=== PATIENT | female | born 1970 | race Caucasian/White ===

== ENCOUNTER 2016-06-16 03:43 | Emergency (ER) | payer SELFPAY ==
[2016-06-16] MEDS ORDERED: DILAUDID 1 MG/ML AMP ONE (04:36)
[2016-06-16] MEDS ORDERED: KETOROLAC 30 MG/ML VIAL ONE (04:36)
[2016-06-16] MEDS ORDERED: SODIUM CHLORIDE 0.9% 1,000 ML ONE (04:36)
[2016-06-16] MEDS ORDERED: ONDANSETRON 4 MG VIAL ONE (04:36)
== END 2016-06-16 06:49 | disposition home or self-care (01) ==
LOC: ER 03:43
DX: N30.90 Cystitis, unspecified without hematuria (principal); R10.31 Right lower quadrant pain
CPT/HCPCS: 36415; 74176; 80053; 81001; 83690; 84703; 85025; 87088; 96361; 96374; 96375